=== PATIENT | female | born 1975 | race Caucasian/White ===

== ENCOUNTER → 2016-11-01 | Outpatient (CLI) | payer OTHER ==
--- NOTE | 2016-11-01 14:53 | DI ---
MRI LUMBAR SPINE SCAN WITHOUT IV CONTRAST, 11/01/2016 1:39 PM: Clinical History: Acute bilateral low back pain. Left sciatica. Previous Exam: None. Technique: Sagittal and axial T2 weighted; sagittal T1 weighted and T2 STIR; and axial PD. The vertebral bodies are of normal height and size. The disc spaces are of normal height and there is mild desiccation change at L4-5. The remaining levels show no desiccation change. The cord terminate s at T12 and the conus medullaris is normal. The T10-11 through T12-L1 disc spaces are normal. L1-2 t hrough L4-5 all have a circumferentially bulging but not herniated discs without canal or neural fora beverly stenosis. The L5-S1 disc space is normal. No significant arthritic changes are identified. Readin. There are bulging but not herniated discs without canal or neural foraminal stenosis from L1-2 th rough L4-5. 2. The T10-11 through T12-L1 disc spaces and the L5-S1 disc space are normal.
== END ==
LOC: MRI 13:31
PROVIDERS: ATTEND Family Medicine
DX: M54.42 Lumbago with sciatica, left side (principal); M47.816 Spondylosis without myelopathy or radiculopathy, lumbar region
CPT/HCPCS: 72148

== ENCOUNTER 2017-01-24 14:52 | Emergency (ER) | payer OTHER ==
[2017-01-24] MEDS ORDERED: diphenhydrAMINE 50 MG/1 ML VIAL IVP ONE (15:20)
[2017-01-24] MEDS ORDERED: KETOROLAC 30 MG/1 ML VIAL IVP ONE (15:20)
[2017-01-24] MEDS ORDERED: Metoclopramide Inj 10 MG/2 ML VIAL IVP ONE (15:20)
[2017-01-24] MEDS ORDERED: NORMAL SALINE 10 ML SYRINGE FLUSH IVP PRN (15:20)
[2017-01-24] MEDS ORDERED: Sodium Chloride 0.9% 1,000 ML PRIMARY IV ONE (15:20)
[2017-01-24 15:22] VITALS: RESP 20; TEMP 96.2
[2017-01-24] MEDS ORDERED: HYDROmorphone 2 MG/1 ML IVP ONE (16:14)
[2017-01-24] MEDS ORDERED: MORPHINE SULFATE 4 MG/1 ML IVP ONE ×2 (16:25→17:13)
[2017-01-24] MEDS ORDERED: DEXAMETHASONE PF 10 MG/1 ML VIAL IVP ONE (17:12)
[2017-01-24] MEDS ORDERED: ONDANSETRON 4 MG/2 ML VIAL IVP ONE (17:39)
[2017-01-24] MEDS ORDERED: Ondansetron ODT Tab 4 MG TAB PO ONE (18:51)
[2017-01-24] MEDS ORDERED: Ondansetron ODT Tab 4 MG TAB PO SCH (19:00)
--- NOTE | 2017-01-25 06:15 | PDOC ---
Headache HPI - General Chief Complaint: Headache Stated Complaint: MIGRAINE HEADACHE Date Seen by Provider: 01/24/17 Time Seen by Provider: 15:10 Source: POSITIVE: Patient Exam Limitations: POSITIVE: No limitations Nurse's Notes Reviewed & Considered: Yes - History of Present Illness Initial Comments: The patient is a 41-year-old female. She states that for the past 14 hours, approximately, she's had a left-sided headache. She's had associated vomiting and photophobia. Patient has a long-standing history of recurring migraine headaches. 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 She states that she is getting Botox injections for her migraines. She is on Topamax 50 mg twice daily and Percocet for her headaches. Present episode is identical to her previous episodes. She has had imaging studies of her brain in the past. Body Location Affected: REPORTS: Head Timing: REPORTS: Gradual, Getting Worse Duration: <24 hours (14 hours, approximately) Severity: Moderate Quality: REPORTS: "Pain", Throbbing Context: DENIES: CO Exposure, Tick Bite, Insect Bite, Recent Head Injury, Other Associated Symptoms: REPORTS: Sensitivity to Light, Nausea, Vomiting. DENIES: Fever, Chills, Sweating, Problems with Vision, Visual Disturb Preceding, [place] Preceding, Typical of Prior Aura(s), Neck Pain, Stiffness, Speech Problems, Weakness, Trouble Walking, Tingling, Numbness, Dizziness, Lightheadedness, Other Exacerbated by: REPORTS: Light Any Prior Injuries Related to Current Complaint?: No - Patient Home Medications Home Medications: Home Medications Vitamin D 10,000 unit PO QD 02/19/12 Topiramate 50 mg PO BID 09/07/14 Diazepam 10 mg PO BID tab 01/13/15 Lidocaine 1 patch TRANSDERM DAILY PRN patch 01/27/16 Trazodone HCl 0.5 - 1 tab PO QHS tab 09/13/16 Dicyclomine HCl 20 mg PO Q6H PRN #90 tab 10/25/16 Morphine Sulfate [Morphine Sulfate Er] 1 tab PO BID tab 11/07/16 Oxycodone HCl/Acetaminophen [Percocet 7.5-325 Mg Tablet] 1 each PO QID PRN tab 11/07/16 Acyclovir [Zovirax] 1 tab PO BID #60 tab 12/25/16 - Patient Allergies Allergies/Adverse Reactions: Allergies Allergy/AdvReac Type Severity Reaction Status Date / Time fentanyl Allergy Severe Hives/Welts Verified 01/24/17 15:04 latex Allergy Severe SWELLING Verified 01/24/17 15:04 hydromorphone HCl Allergy Intermediate HIVES Verified 01/24/17 16:26 [From Dilaudid] ketorolac tromethamine Allergy Intermediate HIVES Verified 01/24/17 15:48 [From Toradol] Sulfa (Sulfonamide Allergy Mild HIVES Verified 01/24/17 15:04 Antibiotics) sulfamethoxazole Allergy Mild HIVES Verified 01/24/17 15:04 [From Bactrim] trimethoprim [From Bactrim] Allergy Mild HIVES Verified 01/24/17 15:04 meperidine HCl [From Demerol] AdvReac Severe Black out Verified 01/24/17 15:04 propofol AdvReac VOMITING Verified 01/24/17 15:04 Past Medical History - heen HEENT History: Other (please comment) Additional HEENT History: EOSIPHILLIA CELLULITIS Cardiovascular History: Denies History Respiratory History: Denies History Gastrointestinal History: Denies History Genitourinary History: Denies History Endocrine History: Denies History Musculoskeletal History: Denies History Prosthesis or Implant: No Neurological History: Migraines, Motion Sickness Additional Neurological History: gets botox injections q 3 mon for migraines Blood Disorders: Denies History Psychiatric History: Depression, Anxiety Disorders Additional Psychiatric History: INSOMNIA, OCCAS PANIC ATTACK History of Sexually Transmitted Diseases: No Female Reproductive History: Hysterectomy Obstetrical History: Denies History Cancer History: Denies History In Past Year Been Physically Harmed or Verbally Threatened: No History of 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 History of Other Communicable Diseases: No Tobacco Use: Never Smoker Alcohol Use: Rarely Substance Use Type: None Previous Surgical History: Yes Type / Date of Surgery: PARTIAL HYSTERECTOMY, CHOLECYSTECTOMY, WISDOM TEETH EXTRACTION Anesthesia Reactions: No Malignant Hyperthermia: No Significant Family History: No pertinent family hx Past Medical History Reviewed: Reviewed - No Changes ROS - Limitations ROS Limitations: No Limitations Constitution: REPORTS: Denies Symptoms Cardiovascular: REPORTS: Denies Cardiac Symptoms Respiratory: REPORTS: Denies Resp Symptoms Neurological: REPORTS: Headache Gastrointestinal: REPORTS: Nausea, Vomitting Endocrine: REPORTS: Denies Symptoms Musculoskeletal: REPORTS: Denies MS Symptoms Genitourinary: REPORTS: Denies Symptoms Eyes: REPORTS: Denies Symptoms ENT: REPORTS: Denies Symptoms Skin: REPORTS: Denies Skin Symptoms Lympathic: REPORTS: Denies Lympathic Symptoms Immunologic: POSITIVE: Denies Symptoms Psychiatric: POSITIVE: Denies Psych Symptoms Headache Exam - General Appearance General Appearance: POSITIVE: Alert, Cooperative, No Acute Distress, No Evidence of Trauma - HEENT Head / Face: POSITIVE: Atraumatic, Normal Inspection, No Facial Swelling Eyes: POSITIVE: Inspection Normal, PERRL, EOM's Intact, Eyelids Uninjured, Conjunctivae Uninjured, No Nystagmus, No Globe Trauma, Sclera Normal, No Papilledema Ears: POSITIVE: Ears Normal Inspection, TM Normal Inspection, Auricle Normal, External Canal Normal Nose: POSITIVE: Inspection Normal, No Apparent Trauma, Nares Normal, No CSF Leak Oropharynx: POSITIVE: External Inspection Nml, Pharynx Inspect. Nml, Airway Intact, Voice Normal, Moist Mucous Membranes, No Oral Injury, Lips Normal, Gums Normal, No Drooling, No Thrush, Normal Gag Reflex Dental: POSITIVE: No Dental Injury - Pupil Size Pupil Size: 4 mm: Bilateral (PERRLA) - Neck Neck: POSITIVE: Normal Inspection, Supple - Respiratory / CVS Respiratory / CVS: POSITIVE: Chest Non-Tender, No Respiratory Distress, Heart Sounds Normal, Regular Rate/Rhythm, Breath Sounds Normal Peripheral Pulses: Radial (R): 2+, Radial (L): 2+ - Abdomen Abdomen: Soft: (All Quadrants), Normal Bowel Sounds: (All Quadrants), Denies Tenderness: (All Quadrants), No Splenomegaly: (All Quadrants), No Hepatomegaly: (All Quadrants), No Guarding: (All Quadrants), No Rebound: (All Quadrants), No Palpable Pulse: (All Quadrants), No Palpabale Mass: (All Quadrants), No Distention: (All Quadrants), No Rigidity: (All Quadrants) - Skin Skin: POSITIVE: Intact, Normal Palpation - Extremities Extremity: Non-Tender: (All Extremities), Normal ROM: (All Extremities), Normal Inspection: (All Extremities) - Neuro / Psych Higher Functions: POSITIVE: Alert, Oriented x3, Normal Speech, Mood Appropriate , Affect Appropriate Cranial Nerves: POSITIVE: Normal As Tested, No Evidence of Acute CVA Cerebellar: POSITIVE: Normal As Tested Sensorimotor: POSITIVE: No Motor Deficits, No Sensory Deficits, Reflexes Normal Images - Head Head: 1 - Area of headache Headache Progress - Patient's Progress Pain Medication Addressed: POSITIVE: Yes (Patient given a liter normal saline, 10 mg of Reglan and 50 mg of Benadryl IV without any improvement. Patient then given morphine sulfate with partial relief of headache.) School/Work Release Addressed: POSITIVE: Not Applicable Re-Examine Time:: 19:00 Re-Examine Comment: Headache improved. Status: POSITIVE: Improved, Re-Examined, Pain Relieved - Consult Counseled: POSITIVE: Patient, RE: DX, RE: Need for F/U Patient Care Time - Estimated PCT Patient Care Time (In Minutes): 65 Vital Signs - VS Reviewed Vital Signs Reviewed: Yes Discharge Clinical Impression: Migraine Discharge Disposition: Discharged to Home Condition: Stable Patient Instructions Given at Discharge: Migraine Headache (ED) Additional Instructions: Rest tonight. Continue present medications. Follow-up with your neurologist and industrial spray painter. Return here anytime if condition worsens in any way. Follow Up With: SOILA GARCIA [Primary Care Provider] - (Instructions as above. Return anytime if condition worsens.)
== END 2017-01-24 19:04 | disposition home or self-care (01) ==
LOC: ER 14:52
DX: G43.009 Migraine without aura, not intractable, without status migrainosus (principal); R11.2 Nausea with vomiting, unspecified; H53.143 Visual discomfort, bilateral
CPT/HCPCS: 96361; 96374; 96375; 96376; 99282; 99283; J1100; J1170; J1200; J1885; J2270; J2405; J2765; J7030

== ENCOUNTER → 2017-01-25 | Outpatient (CLI) | payer OTHER ==
[2017-01-25 07:46] LABS: BASOPHILS # (AUTO) 0.02 10*3/UL; BASOPHILS % (AUTO) 0.2 % (0-1); EOSINOPHILS # (AUTO) 0 10*3/UL; EOSINOPHILS % (AUTO) 0 % (0-8); HEMATOCRIT 43.1 % (37.0-47.0); HEMOGLOBIN 14.7 g/dL (12.0-16.0); LYMPHOCYTES # (AUTO) 1.04 10*3/uL; MEAN CORPUSCULAR HEMOGLOBIN 32.8 PG (27-31); MEAN CORPUSCULAR HGB CONC 34.1 g/dL (33-37); MEAN CORPUSCULAR VOLUME 96.2 FL (81-99); MEAN PLATELET VOLUME 8.5 FL (7.4-12.2); MONOCYTES # (AUTO) 0.23 10*3/UL (0.3-0.8); MONOCYTES % (AUTO) 2.8 % (5-15); NEUTROPHILS # (AUTO) 7.01 10*3/UL; NEUTROPHILS % (AUTO) 83.9 % (50-80); RED BLOOD COUNT 4.48 10^6/uL (4.20-5.40)
[2017-01-25 08:03] LABS: BLOOD UREA NITROGEN 8 mg/dL (7-22); BUN/CREATININE RATIO 11.42 (6-20); CALCIUM 9.8 mg/dL (8.7-10.7); EST GLOMERULAR FILTRATION > 60 (>60 ml/min/1.73m(2)); SERUM ALBUMIN 4.1 g/dL (3.5-4.8)
[2017-01-25 08:19] LABS: PLATELET MORPHOLOGY COMMENT NORMAL MORPHOLOGY (NORM); RBC MORPHOLOGY COMMENT NORMAL MORPHOLOGY (NORM); WBC MORPHOLOGY COMMENT NORMAL MORPHOLOGY (NORM)
[2017-01-25 08:20] LABS: FREE T4 (FREE THYROXINE) 0.74 ng/dL (0.93-1.71)
[2017-01-26 14:07] LABS: THYROID PEROXIDASE AB 0.6 IU/mL (<9.0)
[2017-01-26 14:08] LABS: THYROGLOBULIN AB <1.8 IU/mL (<4.0)
[2017-01-30 08:54] LABS: THYROID STIMULATING IMMUNO <1.0 TSI index (<=1.3)
== END ==
LOC: LAB 07:21
PROVIDERS: ATTEND Nurse Practitioner Adult Health
DX: R94.6 Abnormal results of thyroid function studies (principal); R63.5 Abnormal weight gain; Z79.899 Other long term (current) drug therapy
CPT/HCPCS: 36415; 80053; 84439; 84443; 84445; 84480; 85025; 86376; 86800

== ENCOUNTER → 2017-02-01 | Outpatient (CLI) | payer OTHER ==
--- NOTE | 2017-02-01 14:03 | DI ---
THYROID ULTRASOUND, 02/01/2017 11:07 AM Clinical History: Abnormal TSH value. Previous Exam: None. Scans are performed through both lobes of the thyroid gland in multiple projections with the high res olution linear array probe. Color Doppler ultrasound is also performed. Both lobes of the thyroid gland are of normal size. The right and left lobes measure 14 x 16 x 43 mm, and 14 x 14 x 44 mm, in the AP, transverse, and longitudinal dimensions, respectively. The sonograph ic texture is normal. In the upper pole of the right lobe of the thyroid along the anterior surface i s an ovoid hypoechoic nodule measuring approximately 5 x 8 x 10 mm and shows hypervascularity around the perimeter. It is sharply defined and probably represents a hyperplastic nodule. Toward the midpor tion of the right lobe is an ovoid area of hypoechogenicity that measures 8 x 10 x 16 mm. Its margins are not well-defined although there is some vascularity along the perimeter. The isthmus and left lo be are normal. Readin. There are 2 nodular lesions in the right lobe of the thyroid. The smaller lesion is located anter iorly and superiorly in the upper pole and measures 5 x 8 x 10 mm and is consistent with a hyperplast ic nodule. The larger lesion is located posteriorly in the midportion of the right lobe and is not as well defined. It measures 8 x 10 x 16 mm. Consider ultrasound guided fine needle aspiration and orde red to make a final determination of the larger lesion. 2. The isthmus and left lobe of the thyroid gland are normal.
== END ==
LOC: US 11:03
PROVIDERS: ATTEND Family Medicine
DX: R94.6 Abnormal results of thyroid function studies (principal); R63.5 Abnormal weight gain; M94.8X0 Other specified disorders of cartilage, multiple sites
CPT/HCPCS: 76536